=== PATIENT | male | born 1965 | race Caucasian/White ===

== ENCOUNTER 2018-01-15 20:21 | Emergency (ER) | payer BC ==
[~2018-01-15] VITALS: Ht 180.3 cm; Wt 96.1 kg
[~2018-01-15 20:21] MED LIST: ASPIR-LOW81 MG PO; ZANTAC150 MG PO
[2018-01-15 20:28] VITALS: BP 135/76
== END 2018-01-15 22:06 | disposition left against medical advice (07) ==
LOC: EME 20:21
DX: R21 Rash and other nonspecific skin eruption (principal); L29.9 Pruritus, unspecified; Z53.21 Procedure and treatment not carried out due to patient leaving prior to being seen by health care provider